=== PATIENT | male | born 1990 | race Native Hawaiian/Other Pacific Islander ===

== ENCOUNTER 2019-12-24 15:22 | Emergency (ER) | payer SELFPAY ==
[2019-12-24 15:35] VITALS: BP 139/76
== END 2019-12-24 18:35 | disposition left against medical advice (07) ==
LOC: ED 15:22
DX: J02.9 Acute pharyngitis, unspecified (principal); Z53.21 Procedure and treatment not carried out due to patient leaving prior to being seen by health care provider